=== PATIENT | male | born 1955 | race Caucasian/White ===

== ENCOUNTER → 2016-12-12 | Outpatient (CLI) | payer OTHER ==
[~2016-12-12] MED LIST: ASPEC325 PO; ATEN-175 PO; BNT10 PO; HYDC25 PO; HYOS1TAB PO; SIMV80TA2 PO
--- NOTE | 2016-12-12 11:08 | DIAGNOSTIC IMAGING REPORT ---
CT SCAN OF THE ABDOMEN AND PELVIS WITHOUT CONTRAST CLINICAL HISTORY: COLONIC STRICTURE, SEVERE VASCULOPATHY, COMPARISON STUDY: No previous studies for comparison. TECHNIQUE: CT scan of the abdomen and pelvis was performed from the lung bases to the proximal femurs. Images are reviewed in the axial, sagittal, and coronal planes. IV contrast was not administered for this examination. CT DOSE: 841.12 mGycm FINDINGS: Lower chest: There is pulmonary emphysema. There are calcified right lower lobe granulomas. Liver: The unenhanced liver is normal in size, contour, and attenuation. There is no intrahepatic biliary ductal dilatation. Gallbladder: Unremarkable. Spleen: Normal in size and attenuation. Pancreas: Unremarkable. Adrenal glands: Is a 14 mm right adrenal gland adenoma. Kidneys: There are extensive bilateral arterial calcifications. This makes exclusion of small calculi difficult. There is no hydronephrosis. No ureteral or bladder calculi are visualized. Bowel: There are no transition zones to indicate bowel obstruction. The appendix appears normal. There are postsurgical changes within the rectosigmoid region. There is no acute diverticulitis. Peritoneum: There is no intraperitoneal free air or abdominal ascites. There are multiple fat-containing ventral hernias. There is a fat-containing right inguinal hernia. Vasculature: The abdominal aorta is normal in course and caliber. There are moderately extensive vascular calcifications. Adenopathy: None. Pelvic viscera: The bladder, and pelvic viscera are unremarkable. Skeletal structures: No destructive osseous lesions are seen. There is a grade 1 spondylolisthesis of L4 on L5. IMPRESSION: 1. No evidence of bowel obstruction. No evidence of free air. 2. No acute inflammatory changes 3. Small right adrenal adenoma 4. Multiple fat-containing ventral hernias 5. Fat-containing right inguinal hernia 6. No evidence of pathologic adenopathy Electronically signed by: Davian Virk M.D. 12/12/2016 11:07 AM Dictated Date/Time: 12/12/2016 10:59 AM
== END | disposition home or self-care (01) ==
LOC: C.CTS 09:48
PROVIDERS: ATTEND Colon & Rectal Surgery
DX: K43.9 Ventral hernia without obstruction or gangrene (principal); K40.90 Unilateral inguinal hernia, without obstruction or gangrene, not specified as recurrent; D35.01 Benign neoplasm of right adrenal gland